=== PATIENT | female | born 1940 | race Caucasian/White ===

== ENCOUNTER 2020-10-23 08:02 | Outpatient (CLI) | payer MEDICARE | END 2020-10-23 08:03 | disposition home or self-care (01) | LOC: CSHCT 08:02 | PROVIDERS: ATTEND Specialist | DX: R47.01 Aphasia (principal); I48.91 Unspecified atrial fibrillation; G93.89 Other specified disorders of brain; I67.82 Cerebral ischemia | CPT/HCPCS: 70470; 82565 ==

== ENCOUNTER 2020-11-10 09:13 | Emergency (ER) | payer MEDICARE ==
[2020-11-10] MEDS ORDERED: Morphine 2 MG/ML VIAL ONE (10:24)
[2020-11-10] MEDS ORDERED: HYDROcodone/Acetaminophen 5/325 mg Tablet ONE (10:30)
[2020-11-10] MEDS ORDERED: Fentanyl 100 MCG/2 ML VIAL ONE (11:20)
== END 2020-11-10 10:18 | disposition home or self-care (01) ==
LOC: CSHERS 09:13
DX: S33.5XXA Sprain of ligaments of lumbar spine, initial encounter (principal); E78.5 Hyperlipidemia, unspecified; E78.00 Pure hypercholesterolemia, unspecified; I10 Essential (primary) hypertension; I48.91 Unspecified atrial fibrillation; X50.9XXA Other and unspecified overexertion or strenuous movements or postures, initial encounter
CPT/HCPCS: 93005; 93010; 96372; J2270; J3010

== ENCOUNTER 2021-07-08 09:10 | Observation (INO) | payer MEDICARE ==
[2021-07-08] MEDS ORDERED: Aspirin Chewable 81 MG TAB ONE (09:54)
[2021-07-08] MEDS ORDERED: Nitroglycerin 2% Ointment 1 INCH/1 GM Packet ONE (09:54)
[2021-07-08 09:58] LABS: #Eosinphils 0.1 10x3/uL (0.0-0.5); #Monocytes 0.9 10x3/uL (0.0-1.1); #Neutrophils 5.4 10x3/uL (1.5-8.4); %Basophils 0.5 % (0.0-2.0); %Eosinophils 1.8 % (0.0-6.0); %Lymphocytes 13.9 % (18.0-47.0); %Monocytes 11.3 % (0.0-10.0); %Neutrophils 70.7 % (40.0-75.0); Hemoglobin 13.4 g/dL (12.0-15.5); Mean Corpuscular Hemoglobin 30.7 pg (27.0-33.0); Mean Corpuscular Volume 90.4 fl (81.6-98.3); Mean Platelet Volume 8.8 fl (7.4-10.4); Platelet Count 329 10x3/uL (150-450); Red Blood Cell (RBC) Count 4.36 10x6/uL (3.90-5.03); White Blood Cell (WBC) Count 7.6 10x3/uL (3.5-10.5)
[2021-07-08 10:22] LABS: ALT (SGPT) 22 U/L (8-55); AST (SGOT) 23 U/L (5-34); Albumin 4.2 g/dL (3.4-4.8); Alkaline Phosphatase 90 U/L (40-110); Anion Gap 13 mmol/L (10-20); BUN (Urea Nitrogen) 18 mg/dL (9.8-20.1); Calc. Creatinine Clearance 0 mL/min (70-130); Calcium 9.5 mg/dL (7.8-10.44); Carbon Dioxide 25 mmol/L (23-31); Chloride 96 mmol/L (98-107); Globulin 2.8 g/dL (2.4-3.5); Glucose 105 mg/dL (83-110); Potassium 4.1 mmol/L (3.5-5.1); Sodium 130 mmol/L (136-145)
[2021-07-08] MEDS ORDERED: Acetaminophen 325 MG TAB PO PRN (12:21)
[2021-07-08] MEDS ORDERED: Acetaminophen 650 MG Suppository PR PRN (12:21)
[2021-07-08] MEDS ORDERED: Ondansetron PF 4 MG/2 ML Vial IVP PRN (12:21)
[2021-07-08] MEDS ORDERED: Ondansetron ODT 4 MG TAB PO PRN (12:21)
[2021-07-08] MEDS ORDERED: Nitroglycerin 0.4 MG TAB (25 Tab Bottle) SL PRN (12:21)
[2021-07-08 13:23] LABS: Troponin I 0.011 ng/mL (< 0.028)
[2021-07-08] MEDS ORDERED: Valsartan 80 MG TAB PO SCH (14:00)
[2021-07-08 14:48] VITALS: BMI 21.0
[2021-07-08 15:41] LABS: Troponin I Less than 0.010 ng/mL (< 0.028)
[2021-07-08] MEDS: Carvedilol 12.5 MG TAB PO SCH (20:00)
[2021-07-08] MEDS ORDERED: Rosuvastatin 10 MG TAB PO SCH (21:00)
[2021-07-08] MEDS ORDERED: hydrALAZINE 25 MG TAB PO SCH (22:30)
[2021-07-09 04:37] LABS: #Eosinphils 0.2 10x3/uL (0.0-0.5); #Monocytes 1.1 10x3/uL (0.0-1.1); #Neutrophils 5.9 10x3/uL (1.5-8.4); %Basophils 0.5 % (0.0-2.0); %Lymphocytes 15.6 % (18.0-47.0); %Monocytes 12.1 % (0.0-10.0); %Neutrophils 67.8 % (40.0-75.0); Hemoglobin 11.7 g/dL (12.0-15.5); Mean Corpuscular HGB CONC 34.8 g/dL (32.0-36.0); Mean Corpuscular Hemoglobin 31.4 pg (27.0-33.0); Mean Corpuscular Volume 90.1 fl (81.6-98.3); Mean Platelet Volume 8.8 fl (7.4-10.4); Platelet Count 284 10x3/uL (150-450); RBC Distribution Width 13.1 % (11.5-14.5); Red Blood Cell (RBC) Count 3.73 10x6/uL (3.90-5.03); White Blood Cell (WBC) Count 8.7 10x3/uL (3.5-10.5)
[2021-07-09 05:01] LABS: Anion Gap 11 mmol/L (10-20); Calc. Creatinine Clearance 43 mL/min (70-130); Calcium 8.4 mg/dL (7.8-10.44); Carbon Dioxide 20 mmol/L (23-31); Cardiac Risk 2.6 (Less than 4.5); Chloride 101 mmol/L (98-107); Cholesterol 131 mg/dl (< 200 Desired); Glucose 106 mg/dL (83-110); HDL Cholesterol 50 mg/dL (>60 Neg Risk); LDL Cholesterol, Calculated 70 mg/dL; Potassium 4.1 mmol/L (3.5-5.1); Sodium 128 mmol/L (136-145); Triglycerides 54 mg/dL (Less than 150)
[2021-07-09 05:06] LABS: BUN (Urea Nitrogen) 20 mg/dL (9.8-20.1)
[2021-07-09] MEDS ORDERED: hydrALAZINE 20 MG/ML VIAL SLOW IVP PRN (07:49)
[2021-07-09] MEDS ORDERED: Ketorolac Tromethamine 10 MG TAB PO SCH (08:48)
[2021-07-09] MEDS: Carvedilol 12.5 MG TAB PO SCH (08:52)
[2021-07-09] MEDS ORDERED: Valsartan 80 MG TAB PO SCH ×2 (09:00)
[2021-07-09] MEDS ORDERED: Rivaroxaban 10 MG TAB PO SCH (09:00)
[2021-07-09 12:02] VITALS: BP 144/68; TEMP 98.2
== END 2021-07-09 14:20 | disposition home or self-care (01) ==
LOC: CSHERS 09:10 → CSHTELE 11:22
PROVIDERS: ADMIT Internal Medicine; ATTEND Nurse Practitioner Family
DX: R07.9 Chest pain, unspecified (principal); E87.1 Hypo-osmolality and hyponatremia; I25.10 Atherosclerotic heart disease of native coronary artery without angina pectoris; I10 Essential (primary) hypertension; E78.5 Hyperlipidemia, unspecified; Z79.01 Long term (current) use of anticoagulants; Z79.899 Other long term (current) drug therapy; Z95.5 Presence of coronary angioplasty implant and graft
CPT/HCPCS: 71045; 80048; 80053; 80061; 83880; 84484 ×2; 85025 ×2; 93005; 93306; G0378 ×3; 36415

== ENCOUNTER 2021-07-22 10:11 | Inpatient (IN) | payer MEDICARE ==
[2021-07-22 10:54] LABS: #Eosinphils 0.1 10x3/uL (0.0-0.5); #Neutrophils 7.6 10x3/uL (1.5-8.4); %Basophils 0.2 % (0.0-2.0); %Eosinophils 0.8 % (0.0-6.0); %Lymphocytes 11.6 % (18.0-47.0); %Monocytes 9.5 % (0.0-10.0); %Neutrophils 75.9 % (40.0-75.0); Hemoglobin 8.7 g/dL (12.0-15.5); Mean Corpuscular HGB CONC 35.1 g/dL (32.0-36.0); Mean Corpuscular Hemoglobin 31.8 pg (27.0-33.0); Mean Corpuscular Volume 90.5 fl (81.6-98.3); Mean Platelet Volume 8.5 fl (7.4-10.4); Platelet Count 369 10x3/uL (150-450); RBC Distribution Width 13.9 % (11.5-14.5); Red Blood Cell (RBC) Count 2.74 10x6/uL (3.90-5.03)
[2021-07-22 11:04] LABS: INR-International Normal Ratio 1.5; PTT 28.8 sec (22.0-33.0); Prothrombin Time 16.7 sec (9.5-12.1)
[2021-07-22 11:18] LABS: ALT (SGPT) 24 U/L (8-55); AST (SGOT) 28 U/L (5-34); Albumin 3.4 g/dL (3.4-4.8); Alkaline Phosphatase 92 U/L (40-110); Anion Gap 14 mmol/L (10-20); BUN (Urea Nitrogen) 35 mg/dL (9.8-20.1); Bilirubin, Total 0.7 mg/dL (0.2-1.2); Calc. Creatinine Clearance 0 mL/min (70-130); Calcium 8.3 mg/dL (7.8-10.44); Carbon Dioxide 22 mmol/L (23-31); Chloride 97 mmol/L (98-107); Globulin 2.2 g/dL (2.4-3.5); Glucose 110 mg/dL (83-110); Potassium 3.7 mmol/L (3.5-5.1); Protein, Total 5.6 g/dL (5.8-8.1); Sodium 129 mmol/L (136-145)
[2021-07-22] MEDS ORDERED: Boostrix 0.5 ML (Tdap) VIAL ONE (14:00)
[2021-07-22 15:56] LABS: SARS-CoV-2 NAA Rapid Test Not Detected (NotDetected)
[2021-07-22] MEDS ORDERED: Acetaminophen 325 MG TAB PO PRN (18:54)
[2021-07-22] MEDS ORDERED: Electrolyte Replacement Protocol FS SCH (19:00)
[2021-07-22] MEDS ORDERED: Ketorolac Tromethamine 30 MG/ML VIAL IVP PRN (19:04)
[2021-07-22 20:33] VITALS: BMI 20.8
[2021-07-22] MEDS ORDERED: Carvedilol 12.5 MG TAB PO SCH (21:00)
[2021-07-22] MEDS ORDERED: Rosuvastatin 10 MG TAB PO SCH (21:00)
[2021-07-22] MEDS ORDERED: Dofetilide 0.125 MG CAP PO SCH (21:00)
[2021-07-22] MEDS ORDERED: cefTRIAXone\\ROCEPHIN 1 GM in Sodium Chloride 0.9% 100 ML IVPB SCH (22:00)
[2021-07-22 22:10] VITALS: BP 112/51; TEMP 97.5
[2021-07-22] MEDS ORDERED: Acetaminophen 325 MG TAB ONE (22:18)
[2021-07-23] MEDS ORDERED: Valsartan 80 MG TAB PO SCH (09:00)
== END 2021-07-23 01:33 | disposition short-term general hospital (02) | DRG 552 ==
LOC: CSHERS 10:11 → CSHERHOLD 20:30
PROVIDERS: ADMIT Student in an Organized Health Care Education/Training Program; ATTEND Student in an Organized Health Care Education/Training Program
DX: S22.051A Stable burst fracture of T5-T6 vertebra, initial encounter for closed fracture (principal); R47.01 Aphasia; N39.0 Urinary tract infection, site not specified; E87.1 Hypo-osmolality and hyponatremia; I48.20 Chronic atrial fibrillation, unspecified; E87.2 Acidosis; S42.002A Fracture of unspecified part of left clavicle, initial encounter for closed fracture; S22.061A Stable burst fracture of T7-T8 vertebra, initial encounter for closed fracture; Z20.822 Contact with and (suspected) exposure to COVID-19; G89.29 Other chronic pain; M54.50 Low back pain, unspecified; I10 Essential (primary) hypertension; E78.5 Hyperlipidemia, unspecified; M81.0 Age-related osteoporosis without current pathological fracture; E78.00 Pure hypercholesterolemia, unspecified; W18.30XA Fall on same level, unspecified, initial encounter; D64.9 Anemia, unspecified; I25.10 Atherosclerotic heart disease of native coronary artery without angina pectoris; Z95.5 Presence of coronary angioplasty implant and graft; Z79.01 Long term (current) use of anticoagulants; Z88.5 Allergy status to narcotic agent; Z88.2 Allergy status to sulfonamides; Z79.899 Other long term (current) drug therapy; Z90.89 Acquired absence of other organs; Z90.710 Acquired absence of both cervix and uterus; Y92.009 Unspecified place in unspecified non-institutional (private) residence as the place of occurrence of the external cause; Z79.82 Long term (current) use of aspirin
CPT/HCPCS: 36415; 36416; 70450; 71045; 72125; 72128; 72170; 80053; 84443; 84484; 85025; 85610; 85730; 87040; 87077; 87086; 90715; 93005; J0696; J3490; J8499; U0002